=== PATIENT | male | born 1960 | race Caucasian/White ===

== ENCOUNTER → 2017-07-12 | Outpatient (CLI) | payer OTHER ==
--- NOTE | 2017-07-12 15:16 | XR ---
Lumbosacral spine HISTORY: Low back pain 5 views of lumbosacral spine There is no spondylolysis or spondylolisthesis. Lumbar vertebral bodies show preserved alignment and mineralization. Mild anterior wedging present at L1 and L2, T12. There is multilevel spondylosis. Los s of disc height present at the intervertebral levels. Sclerosis present in the posterior elements. IMPRESSION: Degenerative disc disease, facet arthropathy. Anterior wedging is noted of questionable e tiology, chronicity. Bone scan or MRI could be performed for additional evaluation.
== END | disposition home or self-care (01) ==
LOC: RADXRMAIN 13:08
PROVIDERS: ATTEND Family Medicine
DX: M51.37 Other intervertebral disc degeneration, lumbosacral region (principal); M46.87 Other specified inflammatory spondylopathies, lumbosacral region
CPT/HCPCS: 72110

== ENCOUNTER 2021-09-10 19:08 | Inpatient (IN) | payer OTHER ==
[2021-09-10] MEDS ORDERED: SODIUM CHLORIDE 0.9% 1,000 ML IV STA (20:03)
[2021-09-10 20:08] LABS: Basophils # (A) 0.1 k/uL (0-0.2); Basophils % (A) 1 %; Eosinophils # (A) 0.2 k/uL (0-0.7); Eosinophils % (A) 2 %; HCT 45.4 % (39.0-53.0); HGB 14.9 gm/dL (13.0-17.5); Lymphocytes # (A) 2.6 k/uL (1.0-4.8); Lymphocytes % (A) 23 %; MCH 30.8 pg (25.0-35.0); MCHC 32.8 g/dL (31.0-37.0); MCV 93.9 fL (80.0-100.0); Monocytes # (A) 0.5 k/uL (0-1.0); Monocytes % (A) 5 %; Neutrophils # (A) 7.4 k/uL (1.3-7.7); Neutrophils % (A) 68 %; Platelet Count 272 k/uL (150-450); RBC 4.83 m/uL (4.30-5.90); RDW 13.2 % (11.5-15.5); WBC 10.9 k/uL (3.8-10.6)
[2021-09-10] MEDS ORDERED: HEPARIN SODIUM 1,000 UN/ML (10ML VL) IV ONE (20:12)
[2021-09-10] MEDS ORDERED: HEPARIN SODIUM 1,000 UN/ML (10ML VL) IV PRN (20:12)
[2021-09-10] MEDS ORDERED: HEPARIN SOD,PORK IN 0.45% NACL 25,000 UNIT in 0.45% NACL 1 250ML.BAG IV SCH (20:15)
[2021-09-10] MEDS ORDERED: niCARdipine 20 MG in SODIUM CHLORIDE 0.9% 192 ML IV SCH (20:15)
[2021-09-10 20:17] LABS: Partial Thromboplastin Time 24.8 sec (22.0-30.0); Prothrombin Time 10.8 sec (9.0-12.0)
[2021-09-10 20:26] LABS: Appearance,Urine Clear (Clear); Bilirubin,Urine Negative (Negative); Blood,Urine Negative (Negative); Color,Urine Light Yellow; Glucose,Urine (UA) Negative (Negative); Ketones,Urine Negative (Negative); Leukocyte Esterase,Urine Negative (Negative); Nitrite,Urine Negative (Negative); PH, Urine 5.5 (5.0-8.0); Protein,Urine Negative (Negative); Specific Gravity,Urine 1.009 (1.001-1.035); Urobilinogen,Urine <2.0 mg/dL (<2.0)
[2021-09-10 20:28] LABS: Albumin 3.8 g/dL (3.5-5.0); Calcium 8.9 mg/dL (8.4-10.2); Potassium 4.4 mmol/L (3.5-5.1); Total Bilirubin 1.3 mg/dL (0.2-1.3); Total Protein 6.6 g/dL (6.3-8.2)
[2021-09-10] MEDS ORDERED: DILTIAZEM 125 MG in SODIUM CHLORIDE 0.9% 100 ML IV SCH (20:30)
[2021-09-10] MEDS ORDERED: DILTIAZEM DRIP BOLUS FROM BAG 1 MG SOLN IV ONE (20:49)
[2021-09-10] MEDS ORDERED: NALOXONE 0.4 MG/ML 1 ML VIAL IV PRN ×2 (21:27→23:21)
--- NOTE | 2021-09-10 21:29 | XR ---
EXAMINATION TYPE: XR chest 2V DATE OF EXAM: 09/10/2021 COMPARISON: NONE HISTORY: Chest pain TECHNIQUE: 2 views FINDINGS: Heart and mediastinum are normal. Lungs are clear. Diaphragm is normal. Bony thorax is inta ct. IMPRESSION: Normal chest.
--- NOTE | 2021-09-10 21:46 | ED ---
General Adult HPI - General Chief complaint: Shortness of Breath Stated complaint: poss AFIB 69 to 149 Time Seen by Provider: 09/10/21 19:57 Source: patient, RN notes reviewed Mode of arrival: ambulatory Limitations: no limitations - History of Present Illness Initial comments: Patient is a 61-year-old male that presents to the emergency department comp laining of palpitations and chest discomfort. He notes that he has no cardiac history that he knows of. He notes he hasn't followed up with his primary care in the last 3 years. Patient otherwise a well-appearing healthy 61-year-old male in no apparent distress. He notes that the onset of these palpitations were within the last 24-48 hours. He denied any alleviating or aggravating factors. He denied any chest pain headache nausea vomiting diarrhea constipation fever fatigue chills. - Related Data Allergies Allergy/AdvReac Type Severity Reaction Status Date / Time nitrofurantoin Allergy Rash/Hives Verified 09/10/21 20:14 [From Macrodantin] Review of Systems ROS Statement: Those systems with pertinent positive or pertinent negative responses have been documented in the HPI. ROS Other: All systems not noted in ROS Statement are negative. Past Medical History Past Medical History: No Reported History History of Any Multi-Drug Resistant Organisms: None Reported Past Surgical History: Orthopedic Surgery Past Psychological History: No Psychological Hx Reported Smoking Status: Never smoker Past Alcohol Use History: None Reported Past Drug Use History: None Reported General Exam Limitations: no limitations General appearance: alert, in no apparent distress Head exam: Present: atraumatic, normocephalic, normal inspection Eye exam: Present: normal appearance, PERRL, EOMI. Absent: scleral icterus, conjunctival injection, periorbital swelling ENT exam: Present: normal exam, mucous membranes moist Neck exam: Present: normal inspection. Absent: tenderness, meningismus, lymphadenopathy Respiratory exam: Present: normal lung sounds bilaterally. Absent: respiratory distress, wheezes, rales, rhonchi, stridor Cardiovascular Exam: Present: regular rate, normal rhythm, normal heart sounds. Absent: systolic murmur, diastolic murmur, rubs, gallop, clicks GI/Abdominal exam: Present: soft, normal bowel sounds. Absent: distended, tenderness, guarding, rebound, rigid Extremities exam: Present: normal inspection, full ROM, normal capillary refill. Absent: tenderness, pedal edema, joint swelling, calf tenderness Neurological exam: Present: alert, oriented X3 Psychiatric exam: Present: normal affect, normal mood Skin exam: Present: warm, dry, intact, normal color. Absent: rash Course Vital Signs 09/10/21 19:20 Temperature 97.6 F Pulse Rate 146 H Respiratory 20 Rate Blood Pressure 132/79 O2 Sat by Pulse 99 Oximetry EKG Findings - EKG Comments: EKG Findings:: Ventricular rate 151 bpm, QRS duration 82 ms, QTC 491 ms, atrial flutter with a 2-1 AV conduction, nonspecific ST abnormality, abnormal ECG. Medical Decision Making - Medical Decision Making 61-year-old male with palpitations and shortness of breath 1-2 days. Labs, EKG, monitor car operator, chest x-ray, 1 L normal saline ordered. Labs are unremarkable, troponin is negative, d-dimer is 0.61 acceptable for the age aspect. Chest x-ray shows normal chest. Line given new-onset atrial flutter patient was heparinized and a Cardizem bolus and drip was ordered. Given patient's new onset of atrial flutter he would be admitted to the hospital. Case discussed with Dr. Haywood. Dr. Ceja was consult looks of the admit with cardiology on consult. - Lab Data Result diagrams: 09/10/21 19:54 09/10/21 19:54 Lab Results 09/10/21 09/10/21 09/10/21 Range/Units 19:54 19:54 19:54 WBC 10.9 H (3.8-10.6) k/uL RBC 4.83 (4.30-5.90) m/uL Hgb 14.9 (13.0-17.5) gm/dL Hct 45.4 (39.0-53.0) % MCV 93.9 (80.0-100.0) fL MCH 30.8 (25.0-35.0) pg MCHC 32.8 (31.0-37.0) g/dL RDW 13.2 (11.5-15.5) % Plt Count 272 (150-450) k/uL MPV 8.0 Neutrophils % 68 % Lymphocytes % 23 % Monocytes % 5 % Eosinophils % 2 % Basophils % 1 % Neutrophils # 7.4 (1.3-7.7) k/uL Lymphocytes # 2.6 (1.0-4.8) k/uL Monocytes # 0.5 (0-1.0) k/uL Eosinophils # 0.2 (0-0.7) k/uL Basophils # 0.1 (0-0.2) k/uL PT 10.8 (9.0-12.0) sec INR 1.0 (<1.2) APTT 24.8 (22.0-30.0) sec D-Dimer (<0.60) mg/L FEU Sodium 137 (137-145) mmol/L Potassium 4.4 (3.5-5.1) mmol/L Chloride 108 H (98-107) mmol/L Carbon Dioxide 19 L (22-30) mmol/L Anion Gap 10 mmol/L BUN 17 (9-20) mg/dL Creatinine 1.06 (0.66-1.25) mg/dL Est GFR (CKD-EPI)AfAm 88 (>60 ml/min/1.73 sqM) Est GFR (CKD-EPI)NonAf 76 (>60 ml/min/1.73 sqM) Glucose 133 H (74-99) mg/dL Calcium 8.9 (8.4-10.2) mg/dL Magnesium 2.0 (1.6-2.3) mg/dL Total Bilirubin 1.3 (0.2-1.3) mg/dL AST 36 (17-59) U/L ALT 32 (4-49) U/L Alkaline Phosphatase 82 (38-126) U/L Troponin I (0.000-0.034) ng/mL Total Protein 6.6 (6.3-8.2) g/dL Albumin 3.8 (3.5-5.0) g/dL Urine Color Urine Appearance (Clear) Urine pH (5.0-8.0) Ur Specific [place] (1.001-1.035) Urine Protein (Negative) Urine Glucose (UA) (Negative) Urine Ketones (Negative) Urine Blood (Negative) Urine Nitrite (Negative) Urine Bilirubin (Negative) Urine Urobilinogen (<2.0) mg/dL Ur Leukocyte Esterase (Negative) 09/10/21 09/10/21 09/10/21 Range/Units 19:54 19:54 20:13 WBC (3.8-10.6) k/uL RBC (4.30-5.90) m/uL Hgb (13.0-17.5) gm/dL Hct (39.0-53.0) % MCV (80.0-100.0) fL MCH (25.0-35.0) pg MCHC (31.0-37.0) g/dL RDW (11.5-15.5) % Plt Count (150-450) k/uL MPV Neutrophils % % Lymphocytes % % Monocytes % % Eosinophils % % Basophils % % Neutrophils # (1.3-7.7) k/uL Lymphocytes # (1.0-4.8) k/uL Monocytes # (0-1.0) k/uL Eosinophils # (0-0.7) k/uL Basophils # (0-0.2) k/uL PT (9.0-12.0) sec INR (<1.2) APTT (22.0-30.0) sec D-Dimer 0.61 H (<0.60) mg/L FEU Sodium (137-145) mmol/L Potassium (3.5-5.1) mmol/L Chloride (98-107) mmol/L Carbon Dioxide (22-30) mmol/L Anion Gap mmol/L BUN (9-20) mg/dL Creatinine (0.66-1.25) mg/dL Est GFR (CKD-EPI)AfAm (>60 ml/min/1.73 sqM) Est GFR (CKD-EPI)NonAf (>60 ml/min/1.73 sqM) Glucose (74-99) mg/dL Calcium (8.4-10.2) mg/dL Magnesium (1.6-2.3) mg/dL Total Bilirubin (0.2-1.3) mg/dL AST (17-59) U/L ALT (4-49) U/L Alkaline Phosphatase (38-126) U/L Troponin I <0.012 (0.000-0.034) ng/mL Total Protein (6.3-8.2) g/dL Albumin (3.5-5.0) g/dL Urine Color Light Yellow Urine Appearance Clear (Clear) Urine pH 5.5 (5.0-8.0) Ur Specific [place] 1.009 (1.001-1.035) Urine Protein Negative (Negative) Urine Glucose (UA) Negative (Negative) Urine Ketones Negative (Negative) Urine Blood Negative (Negative) Urine Nitrite Negative (Negative) Urine Bilirubin Negative (Negative) Urine Urobilinogen <2.0 (<2.0) mg/dL Ur Leukocyte Esterase Negative (Negative) - EKG Data -: EKG Interpreted by Me Rate: tachycardia EKG Comments: Ventricular rate 151 bpm, QRS duration 82 ms, QTC 491 ms, atrial flutter with a 2-1 AV conduction, nonspecific ST abnormality, abnormal ECG. - Radiology Data Radiology results: report reviewed, image reviewed Chest x-ray: Normal chest. Disposition Clinical Impression: Atrial flutter, Palpitations Disposition: ADMITTED IP TO THIS [facility] Condition: Stable Is patient prescribed a controlled substance at d/c from ED?: No Referrals: Amari King Jr, DO [Doctor of Osteopathic Medicine] - 1-2 days Time of Disposition: 21:46
[2021-09-10] MEDS: SODIUM CHLORIDE 0.9% 1,000 ML IV SCH (21:48)
--- NOTE | 2021-09-11 09:43 | CT ---
EXAMINATION TYPE: CT angio chest DATE OF EXAM: 09/11/2021 COMPARISON: Chest x-ray yesterday. HISTORY: Atrial flutter and elevated d-dimer CT DLP: 445.9 mGycm. Automated Exposure Control for Dose Reduction was Utilized. CONTRAST: CTA scan of the thorax is performed with IV Contrast, patient injected with 100 mL of Isovue 300, pul monary embolism protocol. MIP Images are created on CT scanner and reviewed. FINDINGS: LUNGS: Tiny Patchy groundglass opacities in the right lung base are nonspecific. Left lung is clear. Respiratory motion artifact is noted. Mild biapical pleural/parenchymal scarring extending posteriorl y. No pneumothorax seen bilaterally. MEDIASTINUM: There is satisfactory enhancement of the pulmonary artery and its branches, there is no CT evidence for pulmonary embolism. Enhancement of the aorta without aneurysm or dissection. There ar e prominent bilateral hilar lymph nodes and subcarinal lymph nodes. No cardiomegaly or pericardial effusion is seen. [id number] right atrial dilatation. OTHER: Subcentimeter low dense lesions in the left hepatic lobe are too small to further characterize presumed benign. Bilateral flame-shaped subareolar gynecomastia. IMPRESSION: 1. No CT evidence for acute pulmonary embolism. 2. Tiny multifocal groundglass opacities right lung base is nonspecific could reflect developing acut e infiltrate. Correlate clinically.
[2021-09-11] MEDS: APIXABAN 5 MG TAB PO SCH ×2 (10:05→21:51)
[2021-09-11] MEDS: SODIUM CHLORIDE 0.9% 1,000 ML IV SCH (12:42)
--- NOTE | 2021-09-11 12:52 | P.CRDCN ---
History of Present Illness History of present illness: HISTORY OF PRESENTING ILLNESS This is a pleasant 61-year-old male with no known past medical history. He does not follow with a job development specialist. We have been asked to see in consultation for at [facility]. Patient presents emergency department with complaints of palpitations. 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 He states he sat down to rest, his palpitations resolved slightly. He was then doing some house work, lifting things into his car. He had another episodes of palpitations, states he was lightheaded, dizzy, barely could see himself in the mirror, and saw black/white spots. He came to the emergency department for further evaluation. EKG on admission revealed atrial flutter with 2:1 conduction, heart rate 151. Patient was started on IV Cardizem, IV heparin and given IV fluid bolus. Patient converted to sinus mechanism Patient denies any history of atrial fibrillation and atrial flutter, coronary disease, [place], stroke, hypertension, diabetes, hyperlipidemia. He denies any family history of heart disease. DIAGNOSTICS Telemetry tracings indicate sinus mechanism, heart rate 6080s. Chest xray no acute cardiopulmonary process Laboratory reviewed, WBC 10.9 2014, platelets 272, d-dimer 0.6, sodium 137, potassium 4.4, BUN 17, serum creatinine 1.0, magnesium 2.0, troponin negative, TSH within normal limits, UA negative, covid-19 negative Current cardiac medications include []. REVIEW OF SYSTEMS At the time of my exam: CONSTITUTIONAL: Denies fever or chills. CARDIOVASCULAR: Denies chest pain, shortness of breath, orthopnea, PND. Reports palpitations, now resolved RESPIRATORY: Denies cough. GASTROINTESTINAL: Denies abdominal pain, diarrhea, constipation, nausea or vomiting. MUSCULOSKELETAL: Denies myalgias. NEUROLOGIC: Denies numbness, tingling, headacbe or weakness. ENDOCRINE: Denies fatigue, weight change, polydipsia or polyurina. GENITOURINARY: Denies burning, hematuria or urgency with micturation. HEMATOLOGIC: Denies history of anemia or bleeding. PHYSICAL EXAMINATION Vitals reviewed CONSTITUTIONAL: No apparent distress. HEENT: Head is normocephalic. Pupils are equal, round. Sclerae anicteric. Mucous membranes of the mouth are moist. No JVD. No carotid bruit. CHEST EXAMINATION: Lungs are clear to auscultation. No chest wall tenderness is noted on palpation or with deep breathing. HEART EXAMINATION: Regular rate and rhythm. S1, S2 heard. No murmurs, gallops or rub. ABDOMEN: Soft, nontender. Positive bowel sounds. EXTREMITIES: 2+ peripheral pulses, no lower extremity edema and no calf tenderness. NEUROLOGIC EXAMINATION: Patient is awake, alert and oriented x3. ASSESSMENT Typical atrial flutter Palpitations PLAN Obtain 2D echocardiogram Obtain CTA chest to rule out PE Check hemoglobin A1C Continue cardiac telemetry Stop IV Cardizem Stop IV Heparin, transition to PO Eliquis 5mg BID, Case management consulted, per case management Eliquis is $10/month co pay Patient to follow up with Dr. Winston outpatient for further evaluation, may need atrial flutter ablation in the future Further recommendations based on clinical course Nurse Practitioner note has been reviewed, I agree with a documented findings and plan of care. Patient was seen and examined. Past Medical History Past Medical History: No Reported History History of Any Multi-Drug Resistant Organisms: None Reported Past Surgical History: Orthopedic Surgery Past Psychological History: No Psychological Hx Reported Smoking Status: Never smoker Past Alcohol Use History: None Reported Past Drug Use History: None Reported Medications and Allergies Home Medications Medication Instructions Recorded Confirmed Type Ascorbic Acid [Vitamin C] 1,000 mg PO DAILY 09/10/21 09/10/21 History Cholecalciferol [Vitamin D3 (125 125 mcg PO DAILY 09/10/21 09/10/21 History Mcg = 5000 Iu)] Zinc 50 mg PO DAILY 09/10/21 09/10/21 History Apixaban [Eliquis] 5 mg PO BID 30 Days #60 tab 09/11/21 Rx Allergies Allergy/AdvReac Type Severity Reaction Status Date / Time nitrofurantoin Allergy Rash/Hives Verified 09/10/21 21:59 [From Macrodantin] Physical Exam Vitals: Vital Signs Temp Pulse Resp BP Pulse Ox 09/11/21 07:32 85 20 116/74 98 09/11/21 06:20 66 10 L 104/66 98 09/11/21 02:39 72 18 103/64 97 09/11/21 00:47 70 18 96/62 97 09/10/21 19:20 97.6 F 146 H 20 132/79 99 Intake and Output 09/10/21 09/11/21 09/11/21 22:59 06:59 14:59 Intake Total 75 Balance 75 Intake: Intake, IV Titration 75 Amount Heparin Sod,Pork in 0.45% 75 NaCl 25,000 unit In 0.45 % NaCl 1 250ml.bag @ 10. 448 UNITS/KG/HR 10 mls/hr IV .Q24H [facility] Rx#: [id number] Other: Weight 95.708 kg Results 09/10/21 19:54 09/10/21 19:54 Cardiac Enzymes 09/10/21 09/10/21 Range/Units 19:54 19:54 AST 36 (17-59) U/L Troponin I <0.012 (0.000-0.034) ng/mL Coagulation 09/10/21 09/11/21 Range/Units 19:54 02:07 PT 10.8 (9.0-12.0) sec APTT 24.8 35.6 H (22.0-30.0) sec CBC 09/10/21 Range/Units 19:54 WBC 10.9 H (3.8-10.6) k/uL RBC 4.83 (4.30-5.90) m/uL Hgb 14.9 (13.0-17.5) gm/dL Hct 45.4 (39.0-53.0) % Plt Count 272 (150-450) k/uL Comprehensive Metabolic Panel 09/10/21 Range/Units 19:54 Sodium 137 (137-145) mmol/L Potassium 4.4 (3.5-5.1) mmol/L Chloride 108 H (98-107) mmol/L Carbon Dioxide 19 L (22-30) mmol/L BUN 17 (9-20) mg/dL Creatinine 1.06 (0.66-1.25) mg/dL Glucose 133 H (74-99) mg/dL Calcium 8.9 (8.4-10.2) mg/dL AST 36 (17-59) U/L ALT 32 (4-49) U/L Alkaline Phosphatase 82 (38-126) U/L Total Protein 6.6 (6.3-8.2) g/dL Albumin 3.8 (3.5-5.0) g/dL Current Medications Generic Name Dose Route Start Last Admin Trade Name Freq PRN Reason Stop Dose Admin Heparin Sodium (Porcine) 0 unit 09/10/21 20:12 09/11/21 04:00 Heparin Sodium 1,000 Un/Ml (10ml Vl) IV 2,400 unit PER PROTOCOL PRN Administration Low PTT Protocol Heparin Sodium/Sodium Chloride 250 mls @ 10 mls/hr 09/10/21 20:15 09/11/21 04:07 25,000 unit/ Sodium Chloride IV 12.448 units/kg/hr .Q24H JENNIFER 11.914 mls/hr Titration Protocol 10.448 UNITS/KG/HR Diltiazem HCl 125 mg/ Sodium 125 mls @ 5 mls/hr 09/10/21 20:30 09/10/21 21:03 Chloride IV 5 mg/hr .Q24H JENNIFER 5 mls/hr Administration 5 MG/HR Sodium Chloride 1,000 mls @ 130 mls/hr 09/10/21 21:30 09/10/21 21:48 Saline 0.9% IV 130 mls/hr .[id number] JENNIFER Administration Naloxone HCl 0.2 mg 09/10/21 21:27 Naloxone 0.4 Mg/Ml 1 Ml Vial IV Q2M PRN Opioid Reversal Naloxone HCl 0.2 mg 09/10/21 23:21 Naloxone 0.4 Mg/Ml 1 Ml Vial IV Q2M PRN Opioid Reversal Intake and Output 09/10/21 09/11/21 09/11/21 22:59 06:59 14:59 Intake Total 75 Balance 75 Intake: Intake, IV Titration 75 Amount Heparin Sod,Pork in 0.45% 75 NaCl 25,000 unit In 0.45 % NaCl 1 250ml.bag @ 10. 448 UNITS/KG/HR 10 mls/hr IV .Q24H JENNIFER Rx#: [id number] Other: Weight 95.708 kg 09/10/21 19:54 09/10/21 19:54
[2021-09-12 03:12] VITALS: RESP 16
[2021-09-12] MEDS: APIXABAN 5 MG TAB PO SCH (07:53)
[2021-09-12 07:55] VITALS: TEMP 98.2
--- NOTE | 2021-09-12 10:00 | ECHOF ---
Referral Reason:new onset atrial flutter, now in sinus MEASUREMENTS -------- HEIGHT: 182.9 cm WEIGHT: 95.7 kg BP: RVIDd: 3.2 cm (< 3.3) IVSd: 0.6 cm (0.6 - 1.1) LVIDd: 5.1 cm (3.9 - 5.3) LVPWd: 0.7 cm (0.6 - 1.1) IVSs: 1.1 cm LVIDs: 3.8 cm LVPWs: 1.5 cm LAESV Index (A-L): 34.33 ml/m Ao Diam: 2.6 cm (2.0 - 3.7) AV Cusp: 2.0 cm (1.5 - 2.6) MV EXCURSION: 18.395 mm (> 18.000) MV EF SLOPE: 121 mm/s (70 - 150) EPSS: 0.3 cm MV E Fly: 0.66 m/s MV DecT: 137 ms MV A Fly: 0.46 m/s MV E/A Ratio: 1.45 RAP: 5.00 mmHg RVSP: 32.88 mmHg FINDINGS -------- Sinus rhythm. This was a technically good study. LV size, wall thickness and systolic function are normal, with an EF greater than 55%. The left marcus tricular size is normal. The right ventricle is normal in size. LA is midly dilated 29-33ml/m2. The right atrial size is normal. The aortic valve is trileaflet, and appears structurally normal. No aortic stenosis or regurgitation. [id number] mitral regurgitation is present. There is mild mitral valve prolapse. Mild tricuspid regurgitation present. Right ventricular systolic pressure is normal at < 35 mmHg. There is no pulmonic regurgitation present. There is no pericardial effusion. CONCLUSIONS -------- 1. LV size, wall thickness and systolic function are normal, with an EF greater than 55%. 2. The left ventricular size is normal. 3. The right ventricle is normal in size. 4. LA is midly dilated 29-33ml/m2. 5. The right atrial size is normal. 6. The aortic valve is trileaflet, and appears structurally normal. No aortic stenosis or regurgitati on. 7. [id number] mitral regurgitation is present. 8. There is mild mitral valve prolapse. 9. Mild tricuspid regurgitation present. 10. There is no pericardial effusion. GATE CLERK: Francie Chaney RDCS
--- NOTE | 2021-09-12 11:12 | P.HPIM ---
<Landen Diggs - Last Filed: 09/12/21 13:29> History of Present Illness H&P Date: 09/12/21 History of Presenting Illness: Patient is a very pleasant 61-year-old male with no known reported past medical history who presented to the emergency department on 09/10/21 with a chief complaint of palpitations. He was seen and fully evaluated. His EKG revealed a flutter with RVR at 151 bpm. Chest x-ray negative for acute cardiopulmonary process. CTA negative for pulmonary emboli positive for tiny multiple groundglass opacities in the right lung base suggestive of possible acute infiltrate. Echocardiogram revealing normal EF greater than 55% with moderate to severe mitral regurgitation otherwise no significant valvular abnormalities. Patient was started on heparin infusion and admitted to the hospital. He was evaluated by cardiology. Labs were unremarkable showing slight leukocytosis with WBC count of 10.9 and an elevated d-dimer of 0.61. Troponin normal findings at less than 0.012 and Covid PCR was negative. Patient's hemoglobin A1c is 5.8% and TSH normal findings at 2.050. We were notified on 09/12/21 at 10:08 a.m. for medical management of patient as his admission was transferred to our services. At time of assessment patient denies having any complaints or concerns reporting full resolution of palpitations approximately 30 minutes after arrival to hospital on 09/20/21 after he was started on Cardizem and converted to normal sinus rhythm. After converting to NSR, pt has since maintained sinus rhythm throughout hospitalization with no further complaints. Patient was transitioned from anticoagulation with heparin to oral anticoagulant with Eliquis. He has been cleared by cardiology and is medically stable for discharge home at this time. Review of systems: Pertinent positives and negatives as discussed in HPI, a complete review of systems was performed and all other systems are negative. Physical exam: Vital signs reviewed and stable. General: Nontoxic, no distress and appears stated age. Derm: Skin warm and dry, normal coloration for ethnicity. Head: Atraumatic, normocephalic and symmetric. Eyes: EOMs intact, no lid lag, and anicteric sclera Mouth: no lip lesions, mucus membranes moist Cardiovascular: regular rate and rhythm with normal S1S2, soft murmur, positive posterior tibial pulses bilaterally, and cap refill < 2 seconds. Lungs: Respirations even, regular, and unlabored on room air. Lungs CTA bilaterally, no rhonchi, no rales, no wheezing, and no accessory muscle usage. Abdominal: soft, nontender to palpation, no guarding, no appreciable organomegaly Ext: ROM intact. No gross muscle atrophy, no edema, no contractures Neuro: Speech clear, face symmetrical and CN II-XII grossly intact with no noted focal neuro deficits Psych: Alert and oriented to person, place, time, and situation. Appropriate and pleasant affect. Assessment and Plan of Care: Atrial flutter with RVR Severe mitral valve regurgitation -EKG revealed a flutter with RVR at 151 bpm. Chest x-ray negative for acute cardiopulmonary process. -Troponin < 0.012 -TSH normal findings at 2.050. -D-dimer elevated at 0.61. CTA negative for pulmonary emboli positive for tiny multiple groundglass opacities in the right lung base suggestive of possible acute infiltrate. Echocardiogram revealing normal EF greater than 55% with moderate to severe mitral regurgitation otherwise no significant valvular abnormalities. -Patient initially started on heparin infusion, has been transitioned to oral anticoagulation with Eliquis -Patient initially started on Cardizem infusion converting to normal sinus rhythm. -Telemetry monitoring Elevated d-dimer, CTA negative for PE CODE STATUS: Full code DVT prophylaxis: Eliquis Discussed with: Patient, patient's family at bedside, and RN Anticipated discharge date: today Anticipated discharge place: Home A total of 45 minutes was spent on the care of this complex patient more than 50% of the time was spent in counseling and care coordination. Past Medical History Past Medical History: Chest Pain / Angina History of Any Multi-Drug Resistant Organisms: None Reported Past Surgical History: Orthopedic Surgery Additional Past Surgical History / Comment(s): cervial fusion Past Anesthesia/Blood Transfusion Reactions: No Reported Reaction Past Psychological History: No Psychological Hx Reported Smoking Status: Never smoker Past Alcohol Use History: None Reported Past Drug Use History: None Reported - Past Family History Father Family Medical History: No Reported History Mother Additional Family Medical History / Comment(s): Breast CA Medications and Allergies Home Medications Medication Instructions Recorded Confirmed Type Ascorbic Acid [Vitamin C] 1,000 mg PO DAILY 09/10/21 09/10/21 History Cholecalciferol [Vitamin D3 (125 125 mcg PO DAILY 09/10/21 09/10/21 History Mcg = 5000 Iu)] Zinc 50 mg PO DAILY 09/10/21 09/10/21 History Apixaban [Eliquis] 5 mg PO BID 30 Days #60 tab 09/11/21 Rx Allergies Allergy/AdvReac Type Severity Reaction Status Date / Time nitrofurantoin Allergy Rash/Hives Verified 09/10/21 21:59 [From Macrodantin] Physical Exam Vitals: Vital Signs Temp Pulse Pulse Resp BP BP Pulse Ox 09/12/21 08:00 71 16 09/12/21 07:54 98.2 F 71 16 119/73 98 09/12/21 03:10 97.8 F 72 16 99/62 95 09/12/21 01:12 69 17 09/12/21 00:00 97.9 F 69 17 98/62 98 09/11/21 20:00 97.5 F L 72 76 17 109/65 127/79 97 09/11/21 19:00 70 18 110/75 98 09/11/21 17:11 97.6 F 66 16 111/76 100 Intake and Output 09/11/21 09/12/21 09/12/21 22:59 06:59 14:59 Intake Total 260 600 Output Total 1000 Balance -740 600 Intake: Oral 260 600 Output: Urine 1000 Other: # Voids 3 1 Weight 95.708 kg 100.3 kg Results CBC & Chem 7: 09/10/21 19:54 09/10/21 19:54 Thrombosis Risk Factor Assmnt - Choose All That Apply Any of the Below Risk Factors Present?: Yes Each Risk Factor Represents 2 Points: Age 61-74 years Thrombosis Risk Factor Assessment Total Risk Factor Score: 2 Thrombosis Risk Factor Assessment Level: Low Risk <Cristhian Laguerre - Last Filed: 09/13/21 08:02> History of Present Illness Patient seen and evaluated by me independently. Patient was also seen by CASPER, the original author of this note. I am in agreement with the subjective, physical exam, and assessment and plan as documented with the addition/changes of my exam and assessment below. Gen: awake, alert HEENT: normocephalic, atraumatic, good hearing acuity, moist mucous membranes Resp: good air exchange, breathing comfortably with no accessory muscle use CVS: good distal perfusion x 4, GI: soft, NTTP, ND : no SPT, no CVAT, shirley catheter not present MSK: no pitting edema, no clubbing Neuro: non-focal, moving all extremities Psych: cooperative, euthymic mood Plan: Patient is doing quite well, ready for discharge. Patient will have follow-up with cardiology.. Physical Exam Osteopathic Statement: *. No significant issues noted on an osteopathic structural exam other than those noted in the History and Physical/Consult. Vitals: Vital Signs Pulse Resp BP Pulse Ox 09/12/21 12:00 74 16 117/77 97 Results CBC & Chem 7: 09/10/21 19:54 09/10/21 19:54
--- NOTE | 2021-09-12 11:13 | P.DS ---
<Landen Diggs - Last Filed: 09/12/21 13:29> Providers Expected date of discharge: 09/12/21 Hospital Course: Discharge Diagnosis: Atrial flutter with RVR Severe mitral valve regurgitation Elevated d-dimer, CTA negative for PE Hospital Course: Patient is a very pleasant 61-year-old male with no known reported past medical history who presented to the emergency department on 09/10/21 with a chief complaint of palpitations. He was seen and fully evaluated. His EKG revealed a flutter with RVR at 151 bpm. Chest x-ray negative for acute cardiopulmonary process. CTA negative for pulmonary emboli positive for tiny multiple groundglass opacities in the right lung base suggestive of possible acute infiltrate. Echocardiogram revealing normal EF greater than 55% with moderate to severe mitral regurgitation otherwise no significant valvular abnormalities. Patient was started on heparin infusion and admitted to the hospital. He was evaluated by cardiology. Labs were unremarkable showing slight leukocytosis with WBC count of 10.9 and an elevated d-dimer of 0.61. Troponin normal findings at less than 0.012 and Covid PCR was negative. Patient's hemoglobin A1c is 5.8% and TSH normal findings at 2.050. We were notified on 09/12/21 at 10:08 a.m. for medical management of patient as his admission was transferred to our services. At time of assessment patient denies having any complaints or concerns reporting full resolution of palpitations approximately 30 minutes after arrival to hospital on 09/20/21 after he was started on Cardizem and converted to normal sinus rhythm. After converting to NSR, pt has since maintained sinus rhythm throughout hospitalization with no further complaints. Patient was transitioned from anticoagulation with heparin to oral anticoagulant with Eliquis. He has been cleared by cardiology and they are recommending follow up outpatient in their office in two weeks. Pt is medically stable for discharge home at this time. Physical exam: Patient was seen and fully evaluated at the bedside this morning. He was sitting up in the chair with his family at bedside. Patient denies having any headache, lightheadedness, dizziness, chest pain, palpitations, shortness of breath, dyspnea with exertion, abdominal pain, nausea, or experiencing any numbness/tingling/weakness in his extremities. Vital signs reviewed and stable. General: Nontoxic, no distress and appears stated age. Derm: Skin warm and dry, normal coloration for ethnicity. Head: Atraumatic, normocephalic and symmetric. Eyes: EOMs intact, no lid lag, and anicteric sclera Mouth: no lip lesions, mucus membranes moist Cardiovascular: regular rate and rhythm with normal S1S2, soft murmur, positive posterior tibial pulses bilaterally, and cap refill < 2 seconds. Lungs: Respirations even, regular, and unlabored on room air. Lungs CTA bilaterally, no rhonchi, no rales, no wheezing, and no accessory muscle usage. Abdominal: soft, nontender to palpation, no guarding, no appreciable organomegaly Ext: ROM intact. No gross muscle atrophy, no edema, no contractures Neuro: Speech clear, face symmetrical and CN II-XII grossly intact with no noted focal neuro deficits Psych: Alert and oriented to person, place, time, and situation. Appropriate and pleasant affect. A total of 35 minutes of time were spent preparing this complex discharge summar y. Patient Condition at Discharge: Stable Plan - Discharge Summary Discharge Rx Participant: Yes New Discharge Prescriptions: New Apixaban [Eliquis] 5 mg PO BID 30 Days #60 tab Continue Cholecalciferol [Vitamin D3 (125 Mcg = 5000 Iu)] 125 mcg PO DAILY Zinc 50 mg PO DAILY Ascorbic Acid [Vitamin C] 1,000 mg PO DAILY Discharge Medication List Ascorbic Acid [Vitamin C] 1,000 mg PO DAILY 09/10/21 [History] Cholecalciferol [Vitamin D3 (125 Mcg = 5000 Iu)] 125 mcg PO DAILY 09/10/21 [History] Zinc 50 mg PO DAILY 09/10/21 [History] Apixaban [Eliquis] 5 mg PO BID 30 Days #60 tab 09/11/21 [Rx] Follow up Appointment(s)/Referral(s): Feroz Winston MD [STAFF PHYSICIAN] - 2 Weeks (office staff will call you to make your follow up appointment) Bacilio Napier MD [REFERRING] - 1-2 Days (office closed for lunch, please call and make a follow up appointment) Patient Instructions/Handouts: Atrial Flutter (DC) Activity/Diet/Wound Care/Special Instructions: Activity: As tolerated. Take breaks as needed. Diet: Heart healthy and carb consistent diet. Avoid salts, or foods with hidden salts such as canned or boxed foods and frozen dinners. Extra salt makes your heart work harder and traps the fluid in your body for longer. Special Instructions: Take all of your medications as directed and remember to keep all of your doctor's appointments and follow-up as needed. Thank you for allowing us to participate in your care, it was truly a pleasure having you for our patient!!! Wishing you a very Happy and Healthy New Year!!! Activate the Eliquis $10 copay card and check with our insurance to see if this can be used. 1st month free Eliquis is at [facility]. Discharge Disposition: HOME SELF-CARE <Cristhian Laguerre - Last Filed: 09/13/21 08:01> Providers Date of admission: 09/10/21 23:21 Attending physician: Cristhian Laguerre MD Consults: 09/10/21 21:27 Consult Physician Urgent Consulting Provider: Kumar Escobedo Consult Reason/Comments: new onset atrial flutter Do you want consulting provider notified?: Yes Primary care physician: Stated None Hospital Course: I reviewed the documentation as provided by the CASPER above, who is the original author of this note. I agree with the documented assessment and plan, with the following changes: none
--- NOTE | 2021-09-12 12:34 | P.PN ---
Subjective HISTORY OF PRESENTING ILLNESS This is a pleasant 61-year-old male with no known past medical history. 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 We have been asked to see in consultation for atrial flutter. Patient presents emergency department with complaints of palpitations. 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 He states he sat down to rest, his palpitations resolved slightly. He was then doing some house work, lifting things into his car. He had another episodes of palpitations, states he was lightheaded, dizzy, barely could see himself in the mirror, and saw black/white spots. He came to the emergency department for further evaluation. EKG on admission revealed atrial flutter with 2:1 conduction, heart rate 151. Patient was started on IV Cardizem, IV heparin and given IV fluid bolus. Patient converted to sinus mechanism.Patient denies any history of atrial fibrillation and atrial flutter, coronary disease, IA, stroke, hypertension, diabetes, hyperlipidemia. He denies any family history of heart disease. 09/12/2021 Patient seen and examined at bedside, no distress. Denies any chest pain, shortness of breath, palpitations. Patient is maintaining sinus mechanism heart rate in the 70s. CTA was negative for pulmonary embolism. Echocardiogram revealed EF 55%, moderate to severe mitral regurgitation, mild mitral valve prolapse, mild tricuspid regurgitation. Patient is ambulating in his room and halls with no difficulty. PHYSICAL EXAMINATION Vitals reviewed CONSTITUTIONAL: No apparent distress. HEENT: neck supple. No JVD. CHEST EXAMINATION: Lungs are clear to auscultation. No chest wall tenderness is noted on palpation or with deep breathing. HEART EXAMINATION: Regular rate and rhythm. S1, S2 heard. Systolic ejection murmur ABDOMEN: Soft, nontender. Positive bowel sounds. EXTREMITIES: 2+ peripheral pulses, no lower extremity edema and no calf tenderness. NEUROLOGIC EXAMINATION: Patient is awake, alert and oriented x3. ASSESSMENT Typical atrial flutter Palpitations Mitral regurgitation Mild mitral valve prolapse PLAN We will continue Eliquis 5mg BID, Case management consulted, per case management Eliquis is $10/month co pay Patient to follow up with Dr. Winston outpatient for further evaluation, may need atrial flutter ablation in the future From cardiology perspective, patient is stable to be discharged home. Nurse Practitioner note has been reviewed, I agree with a documented findings and plan of care. Patient was seen and examined. Objective - Vital Signs Vital signs: Vital Signs Temp 98.2 F 09/12/21 07:54 Pulse 71 09/12/21 07:54 Resp 16 09/12/21 07:54 BP 119/73 09/12/21 07:54 Pulse Ox 98 09/12/21 07:54 Intake & Output 09/11/21 09/12/21 09/12/21 18:59 06:59 18:59 Intake Total 260 600 Output Total 1000 Balance -740 600 Weight 95.708 kg 100.3 kg Intake: Oral 260 600 Output: Urine 1000 Other: # Voids 3 1 - Labs CBC & Chem 7: 09/10/21 19:54 09/10/21 19:54
[2021-09-12 13:15] VITALS: BP 117/77; PULSE 74
== END 2021-09-12 14:00 | disposition home or self-care (01) | DRG 310 ==
LOC: EC 19:08 → 3SCARD 23:21
PROVIDERS: ADMIT Internal Medicine; ATTEND Internal Medicine
DX: I48.3 Typical atrial flutter (principal); I48.91 Unspecified atrial fibrillation; I45.89 Other specified conduction disorders; I08.1 Rheumatic disorders of both mitral and tricuspid valves; R91.8 Other nonspecific abnormal finding of lung field; Z20.822 Contact with and (suspected) exposure to COVID-19; Z79.01 Long term (current) use of anticoagulants; Z80.3 Family history of malignant neoplasm of breast; Z88.8 Allergy status to other drugs, medicaments and biological substances
CPT/HCPCS: 36415; 71046; 71275; 80053; 81003; 83036; 83735; 84443; 84484; 85025; 85379; 85610; 85730; 87635; 93005; 93306; 96361; 96365; 96375; 96376; 99285

== ENCOUNTER 2021-10-09 13:42 | Day surgery (SDC) | payer OTHER ==
[~2021-10-09 13:42] MED LIST: SODIUM CHLORIDE 0.9% 1,000 ML IV SCH
[2021-10-09] MEDS ORDERED: LIDOCAINE 1% INJ 10MG/ML (20 ML MDV) ONE ×2 (14:14→14:51)
--- NOTE | 2021-10-09 14:45 | P.HPCAR ---
History of Present Illness This is Dr. Winston dictating an H/P on this patient The patient was interviewed and examined IMPRESSION / ASSESSMENT: Typical atrial flutter with RVR Moderate to severe mitral regurgitation with mild mitral prolapse No personal history of hypertension or diabetes PLAN: Atrial flutter ablation/EPS HPI Patient presented to the hospital for typical atrial flutter with RVR is complaining of palpitations associated with dizziness and lightheadedness He's had several episodes of dizziness off and on and at that time he saw blacks and white spots Twelve-lead EKG on admission showed atrial flutter with RVR with 21 conduction heart rates 150 beats a minute At this time he denies any shortness of breath He complains of discomfort in the chest when he does pushups but not when he walks up a flight of stairs When he was admitted he had evidence of mild pneumonitis evident on CT of the chest He has recovered completely since then ROS: No fever chills or rigors, no cough, phlegm or expectoration, no nausea, vomiting or diarrhea, no hematuria, dysuria, no musculoskeletal complaints, no strokes or seizures, no skin lesions. EXAMINATION: Blood pressure 146/77 mmHg, pulse rate in the 60s and 70s afebrile 98.2F Heart sounds S1 and S2 are normal Very soft systolic murmur Abdomen soft No JVD No lower extremity edema REVIEW OF LABS, ECG & MEDICAL DATA Twelve-lead EKG shows typical atrial flutter with a heart rate of 151 beats a minute 2-D echo shows left ventricular ejection fraction greater than 55%, mildly dilated left atrium Moderate to severe mitral regurgitation with mild mitral prolapse RVSP less than 35 mmHg Normal RV Physical Exam Vitals: Vital Signs Temp Pulse Resp BP BP Pulse Ox 10/09/21 14:07 98.2 F 67 16 146/77 139/73 95 Intake and Output 10/08/21 10/09/21 10/09/21 22:59 06:59 14:59 Other: Weight 99.6 kg Past Medical History Past Medical History: Chest Pain / Angina History of Any Multi-Drug Resistant Organisms: None Reported Past Surgical History: Orthopedic Surgery Additional Past Surgical History / Comment(s): cervial fusion Past Anesthesia/Blood Transfusion Reactions: No Reported Reaction Past Psychological History: No Psychological Hx Reported Smoking Status: Never smoker Past Alcohol Use History: None Reported Past Drug Use History: None Reported - Past Family History Father Family Medical History: No Reported History Mother Additional Family Medical History / Comment(s): Breast CA Physical Examination Vital Signs Temp Pulse Resp BP BP Pulse Ox 10/09/21 14:07 98.2 F 67 16 146/77 139/73 95 Intake and Output 10/08/21 10/09/21 10/09/21 22:59 06:59 14:59 Other: Weight 99.6 kg Results Current Medications Generic Name Dose Route Start Last Admin Trade Name Freq PRN Reason Stop Dose Admin Sodium Chloride 1,000 mls @ 20 mls/hr 10/09/21 12:45 10/09/21 14:02 Saline 0.9% IV 11/08/21 12:46 0 mls .Q24H JENNIFER Administration Intake and Output 10/08/21 10/09/21 10/09/21 22:59 06:59 14:59 Other: Weight 99.6 kg Patient Weight 10/10/21 06:59 Weight 99.6 kg
[2021-10-09] MEDS ORDERED: NEOSTIGMINE 1 MG/ML 10 ML VIAL ONE (14:51)
[2021-10-09] MEDS ORDERED: PROPOFOL 10 MG/ML 20 ML VIAL IV ONE (14:51)
[2021-10-09] MEDS ORDERED: GLYCOPYRROLATE 0.2 MG/ML 2 ML VIAL ONE (14:51)
[2021-10-09] MEDS ORDERED: SUCCINYLCHOLINE CHLORIDE 100 MG/5 ML SYR IV ONE (14:51)
[2021-10-09] MEDS ORDERED: ISOPROTERENOL 250 MCG/1.25 ML SYR IV ONE (14:51)
[2021-10-09] MEDS ORDERED: ePHEDrine 50 MG/ML 1 ML AMP ONE (14:51)
[2021-10-09] MEDS ORDERED: ONDANSETRON 4 MG/2 ML VIAL ONE (14:51)
[2021-10-09] MEDS ORDERED: fentaNYL (PF) 50 MCG/ML 2 ML AMP ONE (14:51)
[2021-10-09] MEDS ORDERED: ROCURONIUM 10 MG/ML (5 ML VIAL) IV ONE (14:51)
[2021-10-09] MEDS ORDERED: MIDAZOLAM 2 MG/2 ML VIAL ONE (14:51)
[2021-10-09] MEDS ORDERED: LIDOCAINE 1% INJ 10MG/ML (20 ML MDV) SQ ONE (15:37)
[2021-10-09] MEDS ORDERED: HEPARIN SODIUM (1,000 UNIT/ML) 1,000 UNIT in SODIUM CHLORIDE 0.9% 1,000 ML IRRIGATION ONE (17:07)
[2021-10-09] MEDS ORDERED: ACETAMINOPHEN TAB 325 MG TAB PO PRN (17:45)
--- NOTE | 2021-10-09 17:52 | P.EPPROC ---
- EP Procedure Note Electrophysiology Procedure Note: Diagnosis Typical atrial flutter with RVR, symptomatic Mitral prolapse with 3+ mitral regurgitation Preserved LV systolic function, normal LV size Result Successful typical atrial flutter ablation with bidirectional block with differential pacing No sustained atrial fibrillation inducible on off Isuprel Normal sinus node function Normal AV node function Plan Continue anticoagulation for at least 3 months Details of procedure The shunt was brought to the EP lab in a fasting state. Written informed consent was obtained prior to the procedure General anesthesia given, glides scope used for intubation, difficult intubation Venous access was obtained bilaterally and sheaths were placed Diagnostic catheter placed in the high right atrium His bundle area right ventricle and coronary sinus Sinus cycle length 925 ms, VA interval 135 ms, QRS 103 ms and QT 393 ms AH interval 629 ms and HV interval 40 ms AV node Wenckebach block to 60 ms. No evidence for slow pathway conduction and no evidence for delta waves VA Wenckebach block 310 ms Sinus recovery times at 600, 504 100 ms were 1261, 781, and 821 ms. Corresponding corrected sinus node recovery times normal Intracardiac echo performed 3-D electro-anatomic mapping performed RF ablation performed in the cavo tricuspid isthmus Complete line of block. RF line interrogated with differential pacing Bidirectional block proven Isuprel started Atrial pacing performed from the high right atrium and the Eron sinus No inducible atrial fibrillation Sheaths removed, Perclose Used, Vascade used, Hemostasis achieved Patient tolerated the procedure well without any acute complications
--- NOTE | 2021-10-09 17:56 | P.PRLE ---
RE: Juan Betancourt Dear Dr. Tiny Betancourt underwent successful atrial flutter ablation He will continue anticoagulation for 3 months If his final LE VASC or is determined to be less than 2 then we will stop it at that point He does have 3+ mitral regurgitation with mild mitral prolapse and I monitor this At this point it does not appear if he has any hypertension or diabetes TSH is normal LDL is elevated 132, HDL 44, triglycerides 128 and total cholesterol 202 Thank you for entrusting me with the care of the patient Warm regards Sincerely Feroz Winston
[2021-10-09] MEDS ORDERED: ACETAMINOPHEN IV (For NPO) 1,000 MG in EMPTY BAG 1 BAG IVPB ONE (19:00)
[2021-10-09] MEDS: APIXABAN 5 MG TAB PO SCH (21:20)
[2021-10-10 02:47] VITALS: RESP 16
--- NOTE | 2021-10-10 07:41 | P.DS ---
Providers Attending physician: Feroz Winston Primary care physician: Bacilio Napier MD Hospital Course: Patient is doing well. No chest discomfort dizziness lightheadedness. No shortness of breath on exertion Ambulating around in his room He had a little bit of oozing from the right groin last night but this is subsided completely On examination his blood pressure is normal no JVD No murmurs, normal S1 normal S2 Normal breath sounds no rhonchi no crackles Impression Typical atrial flutter with RVR Mitral valve prolapse with 3+ mitral regurgitation Preserved LV size and function at this time Normal hemoglobin A1c Normal blood pressure Plan Anticoagulation for 3 months 12.depression in one to 2 weeks May go home today if he is stable in the next 1-2 hours Plan - Discharge Summary New Discharge Prescriptions: No Action Apixaban [Eliquis] 5 mg PO BID 30 Days #60 tab Discharge Medication List Apixaban [Eliquis] 5 mg PO BID 30 Days #60 tab 09/11/21 [Rx]
[2021-10-10 07:48] VITALS: BP 119/65; PULSE 71; TEMP 98.4
[2021-10-10] MEDS: APIXABAN 5 MG TAB PO SCH (08:37)
== END 2021-10-10 10:15 | disposition home or self-care (01) ==
LOC: CATHEP 13:42 → 6NMEDSUR 17:25 → CATHEP 10-10 10:15
PROVIDERS: ATTEND Internal Medicine Clinical Cardiac Electrophysiology
DX: I48.3 Typical atrial flutter (principal); I34.0 Nonrheumatic mitral (valve) insufficiency; I34.1 Nonrheumatic mitral (valve) prolapse; Z20.822 Contact with and (suspected) exposure to COVID-19; Z98.1 Arthrodesis status; Z80.3 Family history of malignant neoplasm of breast; Z79.01 Long term (current) use of anticoagulants
CPT/HCPCS: 93623; 93662; 93653; 87635; C1894; C1769 ×2; C1760 ×2; C1766; C1730; C1759; C1732; J2250; J2710; J0690; J2405; J2001; J3010; J1644; J0131; J0330; J2704

== ENCOUNTER → 2024-05-28 | Outpatient (CLI) | payer OTHER ==
[2024-05-28 15:46] LABS: ALT 44 U/L (10-49); AST 27 U/L (14-35); Albumin 4.2 g/dL (3.8-4.9); Albumin/Globulin Ratio 1.91 Ratio (1.60-3.17); Alkaline Phosphatase 94 U/L (41-126); Blood Urea Nitrogen 13.2 mg/dL (9.0-27.0); Calcium 9.1 mg/dL (8.7-10.3); Carbon Dioxide 23.9 mmol/L (21.6-31.8); Chloride 108 mmol/L (96-109); Globulin 2.2 g/dL (1.6-3.3); Glucose 101 mg/dL (70-110); Potassium 4.8 mmol/L (3.5-5.5); Sodium 142 mmol/L (135-145); Total Bilirubin 1.4 mg/dL (0.3-1.2); Total Protein 6.4 g/dL (6.2-8.2)
[2024-05-28 16:33] LABS: HCT 46.7 % (39.6-50.0); HGB 15.1 g/dL (13.0-17.0); MCH 30.3 pg (27.0-32.0); MCHC 32.3 g/dL (32.0-37.0); MCV 93.6 FL (80.0-97.0); NRBC Per 100 WBC 0 X 10*3/uL (0.00-0.01); Platelet Count 245 X 10*3/uL (140-440); RBC 4.99 X 10*6/uL (4.40-5.60); RDW 13.2 % (11.5-14.5); WBC 8.72 X 10*3/uL (4.50-10.00)
== END | disposition home or self-care (01) ==
LOC: LABPAT 08:23
PROVIDERS: ATTEND Internal Medicine Clinical Cardiac Electrophysiology
DX: Z01.812 Encounter for preprocedural laboratory examination (principal); I48.11 Longstanding persistent atrial fibrillation
CPT/HCPCS: 80053; 84443; 85027

== ENCOUNTER 2024-06-08 09:55 | Day surgery (SDC) | payer OTHER ==
[~2024-06-08 09:55] MED LIST changes: +LIDOCAINE 1% (10MG/ML) FOR IV START INTRADERMA PRN; -SODIUM CHLORIDE 0.9% 1,000 ML IV SCH; +fentaNYL (PF) 50 MCG/ML 2 ML AMP IVP PRN
[2024-06-08] MEDS: IV FLUID CONTINUATION 1,000 ML IV ONE (10:18)
[2024-06-08] MEDS: SODIUM CHLORIDE 0.9% 1,000 ML IV SCH (10:18)
[2024-06-08 11:30] LABS: ALT 32 U/L (4-49); AST 29 U/L (17-59); African American GFR (CKD) 79 (>60 ml/min/1.73 sqM); Albumin 4.1 g/dL (3.5-5.0); Alkaline Phosphatase 85 U/L (38-126); Anion Gap 4 mmol/L; Blood Urea Nitrogen 16 mg/dL (9-20); Calcium 9.1 mg/dL (8.4-10.2); Carbon Dioxide 25 mmol/L (22-30); Chloride 111 mmol/L (98-107); Glucose 102 mg/dL (74-99); Non-African American GFR(CKD) 68 (>60 ml/min/1.73 sqM); Potassium 4.2 mmol/L (3.5-5.1); Sodium 140 mmol/L (137-145); Total Bilirubin 1.9 mg/dL (0.2-1.3); Total Protein 6.8 g/dL (6.3-8.2)
[2024-06-08] MEDS ORDERED: PHENYLEPHRINE 10 MG/ML VIAL ONE (11:39)
[2024-06-08] MEDS ORDERED: ePHEDrine 50 MG/ML 1 ML VIAL ONE (11:39)
[2024-06-08] MEDS ORDERED: HEPARIN SODIUM,PORCINE 10,000 UNIT/ML 1 ML VIAL ONE (11:39)
[2024-06-08] MEDS ORDERED: ISOPROTERENOL 250 MCG/1.25 ML SYR IV ONE (11:39)
[2024-06-08] MEDS ORDERED: WATER FOR INJECTION, STERILE 10 ML VIAL IV ONE (11:39)
[2024-06-08] MEDS ORDERED: SUCCINYLCHOLINE CHLORIDE 200 MG/10 ML VIAL IV ONE (11:39)
[2024-06-08] MEDS ORDERED: PROPOFOL 10 MG/ML 20 ML VIAL IV ONE (11:39)
[2024-06-08] MEDS ORDERED: fentaNYL (PF) 50 MCG/ML 2 ML AMP ONE (11:39)
[2024-06-08] MEDS: HEPARIN SODIUM,PORCINE (1 ML) 2,500 UNIT in SODIUM CHLORIDE 0.9% 250 ML IRRIGATION ONE (11:44)
[2024-06-08] MEDS: HEPARIN SOD,PORK IN 0.45% NACL 25,000 UNIT in 0.45% NACL 1 250ML.BAG IV ONE ×2 (11:44→12:12)
[2024-06-08] MEDS: HEPARIN SODIUM,PORCINE 10,000 UNIT in SODIUM CHLORIDE 0.9% 1,000 ML IRRIGATION ONE (11:44)
--- NOTE | 2024-06-08 12:18 | P.HPCAR ---
History of Present Illness This is Dr. Winston dictating an H/P on this patient The patient was interviewed and examined IMPRESSION / ASSESSMENT: Paroxysmal atrial fibrillation, symptomatic with associated dizziness and lightheadedness Aberrant conduction noted during atrial fibrillation His symptoms during atrial fibrillation of being short of breath tired fatigued rundown and being dizzy Past history of atrial flutter status post ablation Moderate mitral regurgitation On anticoagulation for stroke prevention Tachybradycardia syndrome PLAN: A-fib ablation Continue anticoagulation Heparin dose calculated, weight-based HPI Patient continues to have dizzy spells and lightheadedness. He is symptomatic with atrial fibrillation with tiredness shortness of breath fatigue He denies any fever chills cough expectoration or any chest pain lately but he has been dizzy ROS: No fever chills or rigors, no cough, phlegm or expectoration, no nausea, vomiting or diarrhea, no hematuria, dysuria, no musculoskeletal complaints, no strokes or seizures, no skin lesions. EXAMINATION: 114/75 mmHg pulse rate in the 60s sinus mechanism afebrile Normal heart sounds no murmurs no gallop no rub External jugular vein noted no JVD Lungs are clear no rhonchi no crackles Abdomen soft nontender No extremity edema REVIEW OF LABS, ECG & MEDICAL DATA Normal sodium and potassium of 114 4.2 Creatinine 1.14 BUN 16, both normal AST and ALT normal Physical Exam Vitals: Vital Signs Temp Pulse Resp BP Pulse Ox 06/08/24 10:16 97.9 F 66 18 114/75 98 Intake and Output 06/07/24 06/08/24 06/08/24 22:59 06:59 14:59 Intake Total 20 Balance 20 Intake: IV 20 Other: Weight 108.1 kg Past Medical History Past Medical History: Atrial Fibrillation, Atrial Flutter, Chest Pain / Angina, Mitral Valve Prolapse (MVP), Pneumonia Additional Past Medical History / Comment(s): See Dr Winston's H&P. History of Any Multi-Drug Resistant Organisms: None Reported Past Surgical History: Back Surgery, Hernia Repair, Orthopedic Surgery, Tonsillectomy Additional Past Surgical History / Comment(s): Cervial fusion 2006, foot surgery, surgery for broken nose, bilateral inguinal hernia repair, knee surgery, uretheral restriction surgery X2, bilateral cataract surgery. Past Anesthesia/Blood Transfusion Reactions: No Reported Reaction Additional Past Anesthesia/Blood Transfusion Reaction / Comment(s): Get a little goofy. Smoking Status: Never smoker - Past Family History Father Family Medical History: No Reported History Additional Family Medical History / Comment(s): parkinsons. Mother Family Medical History: Cancer Additional Family Medical History / Comment(s): Breast CA at age 76. Brother(s) Family Medical History: Cancer Additional Family Medical History / Comment(s): Colon cancer. Son(s) Family Medical History: Cancer, Neurologic Disorder Additional Family Medical History / Comment(s): Thyroid cancer. Physical Examination Vital Signs Temp Pulse Resp BP Pulse Ox 06/08/24 10:16 97.9 F 66 18 114/75 98 Intake and Output 06/07/24 06/08/24 06/08/24 22:59 06:59 14:59 Intake Total 20 Balance 20 Intake: IV 20 Other: Weight 108.1 kg Results 06/08/24 10:00 Cardiac Enzymes 06/08/24 Range/Units 10:00 AST 29 (17-59) U/L Comprehensive Metabolic Panel 06/08/24 Range/Units 10:00 Sodium 140 (137-145) mmol/L Potassium 4.2 (3.5-5.1) mmol/L Chloride 111 H (98-107) mmol/L Carbon Dioxide 25 (22-30) mmol/L BUN 16 (9-20) mg/dL Creatinine 1.14 (0.66-1.25) mg/dL Glucose 102 H (74-99) mg/dL Calcium 9.1 (8.4-10.2) mg/dL AST 29 (17-59) U/L ALT 32 (4-49) U/L Alkaline Phosphatase 85 (38-126) U/L Total Protein 6.8 (6.3-8.2) g/dL Albumin 4.1 (3.5-5.0) g/dL Current Medications Generic Name Dose Route Start Last Admin Trade Name Freq PRN Reason Stop Dose Admin Fentanyl Citrate 50 mcg 06/08/24 05:50 Fentanyl (Pf) 50 Mcg/Ml 2 Ml Amp IVP 06/08/24 23:00 Q3M PRN Pre-Op Pain Control Sodium Chloride 1,000 mls @ 20 mls/hr 06/08/24 05:50 06/08/24 10:18 Saline 0.9% IV 07/08/24 05:49 20 mls/hr .Q24H JENNIFER Administration Lactated Ringer's 1,000 mls @ 20 mls/hr 06/08/24 05:50 Lactated Ringers IV 07/08/24 05:49 .Q24H JENNIFER Lidocaine HCl 0.1 ml 06/08/24 05:50 Lidocaine 1% (10mg/Ml) For Iv Start INTRADERMA 07/08/24 05:49 PER PROTOCOL PRN IV Start Intake and Output 06/07/24 06/08/24 06/08/24 22:59 06:59 14:59 Intake Total 20 Balance 20 Intake: IV 20 Other: Weight 108.1 kg Patient Weight 06/09/24 06:59 Weight 108.1 kg 06/08/24 10:00
[2024-06-08] MEDS: LIDOCAINE 1% INJ 10MG/ML (20 ML MDV) SQ ONE (12:27)
[2024-06-08] MEDS: IOPAMIDOL-370 100ML BTL INJ ONE (14:05)
[2024-06-08] MEDS ORDERED: ACETAMINOPHEN TAB 325 MG TAB PO PRN (14:14)
--- NOTE | 2024-06-08 14:30 | P.EPPROC ---
- EP Procedure Note Electrophysiology Procedure Note: PROCEDURE A. fib ablation with PVI and left atrial septal ablation DIAGNOSIS Paroxysmal atrial fibrillation, symptomatic, refractory to therapy RESULT No left atrial appendage mass seen on intracardiac echo, large left atrial appendage Thickened pericardium with a small amount of pericardial effusion Successful A. fib ablation/pulmonary vein isolation of all veins using cryo- ablation Complete entrance block in all 4 veins confirmed Left atrial septal ablation No evidence for phrenic nerve injury Esophageal deflection YES PROCEDURE DETAILS Written informed consent prior to procedure. Patient brought to the EP lab. General anesthesia given. Heparin administered. A city maintained above 300 seconds Both groins prepped and draped per protocol and venous sheaths placed. Esophagus intubated, circa catheter for temperature monitoring an endoscope for possible esophageal deflection. Phrenic nerve monitoring performed. Esophageal temperature monitoring performed. Esophageal deflection performed if circa catheter overlapping with the balloon or circa temperature less than 27.5C Intracardiac echocardiography performed. Pericardium evaluated. Left atrial appendage evaluated. Left atrium evaluated along with pulmonary veins Transseptal catheterization performed under fluoroscopic guidance and intracardiac echo guidance Cryoablation sheath exchanged, balloon catheter along with achieve catheter placed in the left atrium. Pulmonary veins isolated in the following sequence: Left superior pulmonary vein followed by left inferior pulmonary vein, followed by right inferior pulmonary vein and lastly right superior pulmonary vein. Phrenic nerve stimulation along with capture thresholds within the SVC and right superior pulmonary vein to identify the phrenic nerve proximity to the cryo- balloon. Pulmonary veins isolated and confirmed with entrance and exit block. Phrenic nerve integrity confirmed at the end of the procedure Ablation of the left atrial roof performed with sequential lesions from the left superior to the right superior pulmonary veins. Ablation of the electrograms confirmed Ablation of the left atrial septum performed with cannulation of the superior branch of the right inferior AND the inferior branch of the right superior vein to achieve ablation of the posterior septum of the left atrium. Ablation of electrograms confirmed Diagnostic catheters for the high right atrium, His bundle, coronary sinus placed. LA and RA pressures recorded RA pressure: 8/6 LA pressure: 100/4 Diagnostic EP study with coronary sinus pacing and recording Baseline measurements: Sinus cycle length 109 3 ms, WA interval 114 ms, QRS 106 ms and QT interval 455 ms AH 63 ms and HV interval 39 ms Sinus node recovery times of prolonged. 1665, 1748 ms AV node Wenckebach block 360 ms High-dose Isopril was infused Burst stimulation from the coronary sinus os was performed from 400 ms down to 300 ms. No atrial fibrillation induced Venous sheaths were removed and hemostasis assured with a closure device. Patient extubated and transferred to recovery PROCEDURES PERFORMED Diagnostic EP study CS pacing and recording Left and right transseptal catheterization Catheter the mapping of the tachycardia Intracardiac echocardiography Pulmonary vein isolation with transseptal and comprehensive EPS, [id number] Drug infusion, +[id number] Linear ablation, left atrium, +[id number]
[2024-06-08] MEDS: HYDROmorphone 0.5 MG/0.5 ML SYRINGE IVP STA (14:47)
[2024-06-08] MEDS: ACETAMINOPHEN IV (For NPO) 1,000 MG in EMPTY BAG 1 BAG IVPB ONE (14:56)
[2024-06-08] MEDS: DEXAMETHASONE SOD PHOSPHATE 4 MG/ML 1 ML VIAL IV ONE (16:47)
[2024-06-08] MEDS: ONDANSETRON 4 MG/2 ML VIAL IVP ONE (16:47)
[2024-06-08 19:37] VITALS: RESP 16
[2024-06-09] MEDS: LACTATED RINGERS 1,000 ML IV SCH (00:39)
[2024-06-09 07:58] VITALS: BP 111/64; PULSE 68; TEMP 98.3
[2024-06-09] MEDS: METOPROLOL SUCCINATE (ER) 25 MG TAB.ER.24H PO SCH (09:36)
[2024-06-09] MEDS: RIVAROXABAN 20 MG TAB PO SCH (09:36)
[2024-06-09] MEDS: ATORVASTATIN 10 MG TAB PO SCH (09:36)
--- NOTE | 2024-06-09 15:20 | P.DS ---
Providers Attending physician: Feroz Winston Primary care physician: Nehemias Mcdonald MD Hospital Course: Mr. Betancourt underwent an A-fib ablation yesterday. He is doing well postprocedure. Yesterday he had some chest discomfort and sore throat. Today his chest discomfort has improved significantly he looks comfortable Very mild sore throat No dysphagia No A-fib overnight His groins of healed well no hematoma no swelling On examination he is afebrile, blood pressure 111/64 mmHg, pulse rate in the 60s Heart sounds are normal and regular Breath sounds are clear Impression Paroxysmal atrial fibrillation, symptomatic Status post A-fib ablation with PVI and left atrial septal ablation and ablation of the left rancho in between the left superior and left inferior pulmonary veins Underlying sick sinus syndrome with abnormal sinus node recovery time Plan reduce the dose of metoprolol succinate to 25 mg p.o. daily Continue Xarelto Follow-up with Dr. Winston in 7 to 10 days transfer to Plan - Discharge Summary Discharge Rx Participant: No New Discharge Prescriptions: New Metoprolol Succinate (ER) [Toprol Xl] 25 mg PO DAILY #90 tab Discontinued Metoprolol Succinate [Toprol XL] 50 mg PO DAILY No Action Atorvastatin [Lipitor] 10 mg PO DAILY Rivaroxaban [Xarelto] 20 mg PO DAILY Multivitamins, Thera [Multivitamin (formulary)] 1 tab PO DAILY Multivit-Mins/Iron/Folic/Lycop [Centrum Men's Tablet] 1 each PO DAILY RX: Loratadine 10 mg PO DAILY Vitamin D (Unknown Dose) 1 tab PO DAILY Discharge Medication List Atorvastatin [Lipitor] 10 mg PO DAILY 06/03/24 [History] Multivit-Mins/Iron/Folic/Lycop [Centrum Men's Tablet] 1 each PO DAILY 06/03/24 [History] Multivitamins, Thera [Multivitamin (formulary)] 1 tab PO DAILY 06/03/24 [History] RX: Loratadine 10 mg PO DAILY 06/03/24 [History] Rivaroxaban [Xarelto] 20 mg PO DAILY 06/03/24 [History] Vitamin D (Unknown Dose) 1 tab PO DAILY 06/03/24 [History] Metoprolol Succinate (ER) [Toprol Xl] 25 mg PO DAILY #90 tab 06/08/24 [Rx] Follow up Appointment(s)/Referral(s): Feroz Winston MD [STAFF PHYSICIAN] - 06/19/24 9:15 am Patient Instructions/Handouts: Cardiac Ablation (DC), Electrophysiology Study (DC) Activity/Diet/Wound Care/Special Instructions: Post EP study - Ablation instructions 1. Keep access sites dry for 2 days. 2. No heavy lifting or straining for 2 days. 3. Avoid bending the hips repeatedly for 2 days. 4. You may go up and down stairs slowly Call if the following is noted 1. Bleeding, increasing swelling or pain at the access sites. 2. Increasing chest discomfort, especially upon taking a deep breath. 3. Increasing shortness of breath, at rest or with exertion. 4. Undue cough / phlegm 5. Difficulty or pain while swallowing. 6. Pain or change in color in the extremities. 7. Fever, chills, rigors. 8. Increasing headache or neurologic symptoms. 9. Dizziness, fainting, palpitations Continue Xarelto unchanged and uninterrupted Reduce metoprolol succinate to 25 mg p.o. daily in the morning Discharge Disposition: HOME SELF-CARE
== END 2024-06-09 13:24 | disposition home or self-care (01) ==
LOC: CATHEP 09:55 → 6NMEDSUR 14:02 → CATHEP 06-09 13:24
PROVIDERS: ATTEND Internal Medicine Clinical Cardiac Electrophysiology
CPT/HCPCS: 80053; 84443; 86850; 86900; 86901; 93623; 93656; 93657